=== PATIENT | female | born 1995 | race Caucasian/White ===

== ENCOUNTER → 2019-10-22 | Outpatient (CLI) | payer BC ==
--- NOTE | 2019-10-22 14:53 | Diagnostic Imaging Report ---
PROCEDURE: MRI right joint lower extremity without contrast. TECHNIQUE: Multiplanar, multisequence non contrast-enhanced MRI of the right lower extremity was accomplished. INDICATION: Right knee injury while skiing in August 2019. Instability and effusion. COMPARISON: None. FINDINGS: No acute fracture or dislocation is seen in the right knee. Alignment appears normal. There is no significant joint effusion. The articular cartilage in the patellofemoral compartment is normal. The articular cartilage in the medial and lateral compartments appear normal. No tear is seen of the medial or lateral menisci. The anterior and posterior cruciate ligaments are intact. The medial collateral ligament is intact. The lateral collateral ligamentous complex is intact. The extensor mechanism is intact. The medial and lateral retinacula are intact. Mild focal subcutaneous edema is seen anterior to the tibial tuberosity and at the anteromedial aspect of the knee. No fluid collections are seen. IMPRESSION: 1. No meniscus or ligament tear is seen in the right knee. 2. Mild focal areas of subcutaneous edema anteriorly, may be secondary to contusion. Dictated by: Dictated on workstation # [id number]
== END ==
LOC: RAD 12:16
PROVIDERS: ATTEND Nurse Practitioner Family
DX: M25.561 Pain in right knee (principal); M25.461 Effusion, right knee; M25.361 Other instability, right knee
CPT/HCPCS: 73721